=== PATIENT | male | born 1955 | race Caucasian/White ===

== ENCOUNTER 2019-07-24 19:18 | Inpatient (IN) | payer OTHER ==
[~2019-07-24] VITALS: Ht 190.5 cm; Wt 115.7 kg
[2019-07-24 19:32] VITALS: BP 163/89
[2019-07-24] MEDS ORDERED: METFORMIN HCL500 M3 PO (19:35)
[2019-07-24] MEDS ORDERED: LISINOPRIL5 MG PO (19:36)
[2019-07-24] MEDS ORDERED: LIPITOR 20 MG T20 M1 PO (19:36)
[2019-07-24] MEDS ORDERED: GLIPIZIDE 10 MG10 MG PO (19:36)
[2019-07-24] MEDS ORDERED: ASA81BEC PO (19:37)
[2019-07-24] MEDS ORDERED: CELEBREX 200 M200 M1 PO (19:37)
[2019-07-24] MEDS ORDERED: SINGULAIR 10 MG10 MG PO (19:37)
[2019-07-24] MEDS ORDERED: ZYRTEC10 M5 PO (19:37)
[2019-07-24 20:44] LABS: URINE BILIRUBIN NEGATIVE (Negative); URINE BLOOD 3+ (Negative); URINE CLARITY CLEAR; URINE COLOR YELLOW; URINE GLUCOSE-RANDOM NEGATIVE (Negative); URINE KETONES 1+ (Negative); URINE LEUKOCYTES-REFLEX NEGATIVE (Negative); URINE NITRITE-REFLEX NEGATIVE (Negative); URINE PROTEIN 1+ (Negative); URINE SPECIFIC GRAVITY >= 1.030 (1.005-1.030); URINE UROBILINOGEN 0.2 E.U./dl (0.2-1.0)
[2019-07-24 20:50] LABS: HYALINE CASTS 0-3 Few /LPF (None Seen); URINE RBC >20 Many /HPF (0-2)
[2019-07-24 20:51] LABS: MUCUS 0-3 Light strn/LPF (None Seen); SQUAMOUS 0-3 Few /LPF (0-3)
[2019-07-24 20:52] LABS: BACTERIA-REFLEX None Seen /HPF (None Seen); CRYSTALS None Seen /LPF (None Seen); URINE WBC-REFLEX 0-5 Rare /HPF (0-5)
[2019-07-24 20:58] LABS: ABSOLUTE BASOPHILS 0.1 thou/uL (0.0-0.2); ABSOLUTE LYMPHOCYTES 1.3 thou/uL (0.8-5.3); ABSOLUTE MONOCYTES 0.5 thou/uL (0.0-1.2); ABSOLUTE NEUTROPHILS 10.8 thou/uL (1.6-8.1); EOSINOPHILS 0.2 %; HEMOGLOBIN 14.7 gm/dL (14.0-18.0); LYMPHOCYTES 10.1 %; MCH 30.4 pg (26.0-34.0); MCHC 34.3 g/dL (28.0-37.0); MCV 88.6 fL (80.0-100.0); MPV 8.3 fl. (7.2-11.1); NUCLEATED RBCS 0 /100WBC; PLATELET COUNT* 340 thou/uL (150-400); POLYS 84.7 %; RBC 4.85 mil/uL (4.50-6.00); RDW-CV 13.9 % (10.5-14.5); WBC 12.8 thou/uL (4.0-11.0)
[2019-07-24 21:06] LABS: CALCIUM 9.4 mg/dL (8.5-10.1); CREATININE 1.7 mg/dL (0.6-1.3); POTASSIUM 4.8 mmol/L (3.5-5.1)
[2019-07-24 21:11] LABS: ALBUMIN 3.7 g/dL (3.4-5.0); TOTAL BILIRUBIN 0.5 mg/dL (<0.1-1.0); TOTAL PROTEIN 7.2 g/dL (6.4-8.2)
[2019-07-24 22:39] VITALS: BP 163/89
[2019-07-24 23:00] VITALS: BP 132/79
[2019-07-25 07:30] VITALS: BP 125/75
[2019-07-25 10:32] LABS: CREATININE 1.8 mg/dL (0.6-1.3)
[2019-07-25 11:28] VITALS: BP 125/75
--- NOTE | 2019-07-25 16:32 | EKG ---
[place] [address] ELECTROCARDIOGRAM REPORT Name: CHAPO MORRISON Room: [address] ADM IN M.R.#: [id number] Admission: 07/24/19 Attend Phys: Jose Us Discharge: Date of : 57 Report #: [id number] THIS REPORT FOR: //name// [facility] Test Date: 2019-07-25 Test Time: 12:02:27 Pat Name: CHAPO MORRISON Department: Room: [address] Gender: M Coper Hand: : 1955 Requested By: Geneva Linda Order Number: [id number] Brandie MD: Donovan Shaw Measurements Intervals [place] Rate: 56 P: 22 HI: 148 QRS: 32 QRSD: 107 T: 17 QT: 420 QTc: 406 Interpretive Statements Sinus rhythm Abnormal R-wave progression, early transition No previous ECG available for comparison Electronically Signed On 07-25-2019 16:31:58 CDT by Donovan Shaw [email or web address] <ELECTRONICALLY SIGNED> By: Donovan Shaw MD, [facility] 07/25/19 1631 1202 1202 Donovan Shaw MD, FACC /EPI
[2019-07-25 20:00] VITALS: BP 124/72
[2019-07-25 23:45] VITALS: BP 123/75
[2019-07-26 04:00] VITALS: BP 109/77
[2019-07-26 04:39] LABS: CALCIUM 8.5 mg/dL (8.5-10.1); CREATININE 1.4 mg/dL (0.6-1.3); POTASSIUM 4.3 mmol/L (3.5-5.1)
[2019-07-26 08:05] VITALS: BP 126/78
--- NOTE | 2019-07-26 11:07 | OP ---
[address] [address] OPERATIVE REPORT Name: CHAPO MORRISON Room: [address] IN .R.#: [id number] Admission: 07/24/19 Attend Phys: Jose Us Discharge: Date of : 57 Report #: [id number] THIS REPORT FOR: //name// CC: Jose Jackson DATE OF SERVICE: 07/25/2019 PREOPERATIVE DIAGNOSIS: Left nephrolithiasis. POSTOPERATIVE DIAGNOSIS: Left nephrolithiasis. PROCEDURES PERFORMED: 1. Cystoscopy. 2. Left retrograde pyelogram. 3. Left ureteroscopy with laser lithotripsy and stone basket extraction. 4. Left ureteral stent placement. SURGEON: Dr. Yang Clark. COMPLICATIONS: None. DRAINS: 6 x 26 left ureteral stent. SPECIMENS: Left ureteral stone. ESTIMATED BLOOD LOSS: 0 mL. INDICATIONS FOR THE PROCEDURE: The patient is a 63-year-old gentleman who presented to the ER with left-sided flank pain and was found to have a 7-mm stone at the left UVJ as well as LUIS ANGEL with a creatinine of 1.8. After thorough discussion, a decision was made to proceed with ureteroscopy. DESCRIPTION OF THE PROCEDURE: On 07/25/2019, after consent was obtained, the patient was taken to the operating room and placed in supine position. He was then placed under general anesthesia. He received preoperative IV Cipro for antibiotic coverage. He was then placed in dorsal lithotomy and his genitals were prepped and draped in normal sterile fashion. We began the procedure by inserting a 22.5-Gabonese rigid cystoscope transurethrally without any difficulty. Once in the bladder, identified the left ureteral orifice. There was a stone emanating from this and I passed a sensor wire beyond this up into the renal pelvis under fluoroscopic guidance. At this point, the cystoscope was withdrawn. I then inserted a semirigid ureteroscope. I was able to pass this up alongside the sensor wire just within the UO where the stone resided. A 365 micron laser fiber was utilized to break the stone into approximately 5 smaller fragments. A 1.9 basket was utilized to evacuate [place] [address] OPERATIVE REPORT Name: CHAPO MORRISON Room: [address] IN [facility].#: [id number] Admission: 07/24/19 Attend Phys: Jose Us Discharge: Date of : 57 Report #: [id number] distal ureter. I made one final pass the ureteroscope up to the level of the proximal ureter. There was no evidence of any further stone burden. At this point, I withdrew the ureteroscope. I then placed a 5-Gabonese open-ended stent over the sensor wire. Retrograde pyelogram demonstrated normal-caliber collecting system without any filling defects or extravasation. Sensor wire was then replaced. I then backloaded the cystoscope over the sensor wire. I selected a 6 x 26 stent which passed up the upper pole under fluoroscopic guidance, had a good coil in the urinary bladder under direct visual guidance. The patient's bladder was emptied and was awakened from anesthesia. <ELECTRONICALLY SIGNED> By: Yang Clark MD 07/26/19 1107 1301 1313[facility] Don Clark MD /nt
[2019-07-26 12:02] VITALS: BP 126/78
[2019-07-26] MEDS ORDERED: OXYCODONE HCL 55 MG PO (12:07)
[2019-07-26] MEDS ORDERED: IBUPROFEN200 MG PO (12:09)
[2019-07-26] MEDS ORDERED: FLOMAX0.4 MG PO (12:10)
[2019-08-03 11:11] LABS: STONE CA OXALATE MONOHYDRATE 95 % (()); STONE COLOR Brown (()); STONE WEIGHT 24.1 mg (())
== END 2019-07-26 12:40 | disposition home or self-care (01) | DRG 660 ==
LOC: M.ERS 19:18 → M.3W 21:18 → M.TBA-ER 21:18 → M.3W 23:00
PROVIDERS: Emergency Medicine; Internal Medicine; Urology; ADMIT Family Medicine
PROC: BT1F1ZZ Fluoroscopy of Left Kidney, Ureter and Bladder using Low Osmolar Contrast (ICD-10-PCS; principal; 2019-07-25)
PROC: 0TC78ZZ Extirpation of Matter from Left Ureter, Via Natural or Artificial Opening Endoscopic (ICD-10-PCS; principal; 2019-07-25)
PROC: 0T778DZ Dilation of Left Ureter with Intraluminal Device, Via Natural or Artificial Opening Endoscopic (ICD-10-PCS; principal; 2019-07-25)
DX: N13.2 Hydronephrosis with renal and ureteral calculous obstruction (principal); J98.11 Atelectasis; N17.9 Acute kidney failure, unspecified; I10 Essential (primary) hypertension; E78.00 Pure hypercholesterolemia, unspecified; M19.90 Unspecified osteoarthritis, unspecified site; E11.9 Type 2 diabetes mellitus without complications; Z79.82 Long term (current) use of aspirin; Z79.84 Long term (current) use of oral hypoglycemic drugs; Z83.3 Family history of diabetes mellitus; Z82.49 Family history of ischemic heart disease and other diseases of the circulatory system; Z82.0 Family history of epilepsy and other diseases of the nervous system

== ENCOUNTER 2019-11-23 09:25 | Inpatient (IN) | payer OTHER ==
[~2019-11-23] VITALS: Ht 190.5 cm; Wt 122.0 kg
[~2019-11-23 09:25] MED LIST: ASA81BEC PO; CELEBREX 200 M200 M1 PO; FLOMAX0.4 MG PO; GLIPIZIDE 10 MG10 MG PO; IBUPROFEN200 MG PO; LIPITOR 20 MG T20 M1 PO; LISINOPRIL5 MG PO; METFORMIN HCL500 M3 PO; OXYCODONE HCL 55 MG PO; SINGULAIR 10 MG10 MG PO; ZYRTEC10 M5 PO
[2019-11-23 09:39] VITALS: BP 151/103
[2019-11-23 09:47] LABS: URINE BILIRUBIN NEGATIVE (Negative); URINE BLOOD 2+ (Negative); URINE CLARITY CLEAR; URINE COLOR YELLOW; URINE GLUCOSE-RANDOM 2+ (Negative); URINE KETONES 1+ (Negative); URINE LEUKOCYTES-REFLEX NEGATIVE (Negative); URINE NITRITE-REFLEX NEGATIVE (Negative); URINE PROTEIN 2+ (Negative); URINE SPECIFIC GRAVITY >= 1.030 (1.005-1.030); URINE UROBILINOGEN 0.2 E.U./dl (0.2-1.0)
[2019-11-23 10:01] LABS: HEMATOCRIT 43.5 % (42.0-52.0); HEMOGLOBIN 14.9 gm/dL (14.0-18.0); MCH 30.1 pg (26.0-34.0); MCHC 34.2 g/dL (28.0-37.0); MCV 88.2 fL (80.0-100.0); MPV 7.9 fl. (7.2-11.1); NUCLEATED RBCS 0 /100WBC; PLATELET COUNT* 371 thou/uL (150-400); RBC 4.94 mil/uL (4.50-6.00); RDW-CV 13.4 % (10.5-14.5); WBC 10.8 thou/uL (4.0-11.0)
[2019-11-23 10:17] LABS: BACTERIA-REFLEX 1-9 Few /HPF (None Seen); CASTS None Seen /LPF (None Seen); CRYSTALS None Seen /LPF (None Seen); SQUAMOUS 4-10 Moderate /LPF (0-3); URINE RBC 3-10 Few /HPF (0-2); URINE WBC-REFLEX 0-5 Rare /HPF (0-5)
[2019-11-23 10:33] LABS: ALBUMIN 4.1 g/dL (3.4-5.0); CREATININE 1.9 mg/dL (0.6-1.3); POTASSIUM 4.7 mmol/L (3.5-5.1); TOTAL BILIRUBIN 0.4 mg/dL (<0.1-1.0); TOTAL PROTEIN 7.8 g/dL (6.4-8.2)
[2019-11-23 10:47] LABS: ABSOLUTE LYMPHOCYTES 1.2 thou/uL (0.8-5.3); ABSOLUTE NEUTROPHILS 9.6 thou/uL (1.6-8.1); PLATELET ESTIMATE ADEQUATE
--- NOTE | 2019-11-23 11:06 | NUR ---
PT IS SCHEDULED FOR SURGERY AT [address] WELSH, PER UROLOGY RN.
[2019-11-23 11:59] VITALS: BP 136/82
[2019-11-23 12:00] VITALS: BP 140/77
--- NOTE | 2019-11-23 14:26 | EKG ---
[place] [address] ELECTROCARDIOGRAM REPORT Name: CHAPO MORRISON Room: [address] IN .R.#: [id number] Admission: 11/23/19 Attend Phys: Jose fabian Sa Discharge: Date of : 57 Date of Service: 11/23/19 1335 Report #: [id number] THIS REPORT FOR: //name// [facility] Test Date: 2019-11-23 Test Time: 13:35:45 Pat Name: CHAPO MORRISON Department: Room: [address] Gender: M [employer] Chief: : 1955 Requested By: Aditya Mancia Order Number: [id number] Brandie MD: Donovan Shaw Measurements Intervals [place] Rate: 82 P: 35 SC: 155 QRS: 20 QRSD: 104 T: 19 QT: 380 QTc: 444 Interpretive Statements Sinus rhythm Compared to ECG 07/25/2019 12:02:27 No significant changes Electronically Signed On 11-23-2019 14:25:49 [employer] by Donovan Shaw [email or web address] <ELECTRONICALLY SIGNED> By: Donovan Shaw MD, [facility] 11/23/19 1425 1335 1335 Donovan Shaw MD, [facility] /EPI
[2019-11-23 15:58] VITALS: BP 131/78
--- NOTE | 2019-11-23 18:53 | NUR ---
1200: PATIENT ADMITTED TO RM 213 FROM ER. REPORT RECD. IV SITE INFULTRATED, NEW SITE INITIATED, IV FLUIDS INFUSING W/O DIFF. 1300: ESCORTED TO SURGERY PER BED WITH SPECIAL PROCEDURE TECHNOLOGIST PRESENT. IV SITE SLd. 1555: PATIENT RETURNS FROM SURGERY. CHANGE IN POC. IV FLUIDS RESUMED. IV CATH SITE NOTED WNL, +BLOOD RETURN. PATIENT DENIES NURSING NEEDS AT THIS TIME. POC NPO AFTER MN REVIEWED W/ PATIENT, PATIENT STATES VERBALLY OF UNDERSTANDING. URINE TO BE STRAINED, PATIENT VERBALIZED UNDERSTANDING. EOS: PATIENT RESTING IN BED AT THIS TIME. DENIES NURSING NEEDS. ATE SUPPER MEAL. IV FLUIDS INFUSING W/O DIFF. CALL LIGHT IN REACH. ~TJRN
[2019-11-23 21:20] VITALS: BP 142/92
[2019-11-24 04:08] LABS: HEMATOCRIT 39.2 % (42.0-52.0); HEMOGLOBIN 13.6 gm/dL (14.0-18.0); MCH 30.7 pg (26.0-34.0); MCHC 34.6 g/dL (28.0-37.0); MCV 88.6 fL (80.0-100.0); MPV 8.2 fl. (7.2-11.1); RBC 4.42 mil/uL (4.50-6.00); RDW-CV 13.3 % (10.5-14.5); WBC 10.6 thou/uL (4.0-11.0)
[2019-11-24 04:25] LABS: ALBUMIN 3.3 g/dL (3.4-5.0); CALCIUM 8.2 mg/dL (8.5-10.1); CREATININE 2.3 mg/dL (0.6-1.3); MAGNESIUM 1.6 mg/dL (1.8-2.4); POTASSIUM 4.2 mmol/L (3.5-5.1); TOTAL BILIRUBIN 0.5 mg/dL (<0.1-1.0); TOTAL PROTEIN 6.6 g/dL (6.4-8.2)
--- NOTE | 2019-11-24 04:42 | NUR ---
PT A&O X 4. VSS ON RA. FENTANYL GIVEN FOR PAIN. UP AD EDUARD. NPO SINCE MIDNIGHT FOR PROCEDURE TODAY. IVF RUNNING ORDERED. WILL CONTINUE TO MONITOR.
[2019-11-24 09:30] VITALS: BP 141/90
--- NOTE | 2019-11-24 19:00 | NUR ---
PATIENT PLEASANT AND COOPERATIVE THRU SHIFT, SEE DEC. 1410: PATIENT OFF UNIT, ESCORTED PER BED TO PREOP WITH SURG STAFF PRESENT. 165: PATIENT RETURNS TO . REPORT REC'D. SCD BLE ON AND FUNCT APPROP. PATIENT INSTRUCTED WILL CONTINUE TO STRAIN URINE. IV FLUIDS INFUSING W/O DIFF, SITE NOTED WNL. PATIENT ATE GREATER THAN 50% OF SUPPER MEAL. CURRENTLY RESTING IN BED, DENIES OTHER NURSING NEEDS AT THIS TIME. CAPNO ON, NO ACUTE DISTRESS NOTED. FAMILY MEMBERS PRESENT AT BEDSIDE. HRLY ROUNDS DONE WHILE ON UNIT. ~TJRN
[2019-11-24 21:11] VITALS: BP 125/69
[2019-11-25] VITALS: BP 145/76
[2019-11-25 04:00] VITALS: BP 131/77
--- NOTE | 2019-11-25 05:46 | NUR ---
STRAINED URINE ALL SHIFT WITH NO RESIDUE OF STONE PRESENT. PATIENT DID NOT REPORT ANY PAIN OR NAUSEA. HE IS ABLE TO AMBULATE WELL AND IS NOT SHOWING ANY SIGNS OF PAIN OR DISCOMFORT. ON 2L O2 AND FLUIDS ALL SHIFT. PLAN IS TO D/C WEDNESDAY IF RENAL FUNTION IMPROVED. WILL CONTINUE TO FOLLOW PLAN OF CARE.
[2019-11-25] MEDS ORDERED: OXYBUTYNIN 5 MG5 M2 PO (08:26)
[2019-11-25] MEDS ORDERED: PERCOCET 5-3251 EACH PO (08:26)
[2019-11-25] MEDS ORDERED: CIPRO500 M1 PO (08:26)
[2019-11-25 09:16] LABS: CALCIUM 8.3 mg/dL (8.5-10.1); CREATININE 1.8 mg/dL (0.6-1.3); POTASSIUM 4.2 mmol/L (3.5-5.1)
[2019-11-25 11:00] VITALS: BP 131/77
[2019-11-25 14:34] VITALS: BP 131/77
--- NOTE | 2019-11-25 15:50 | NUR ---
PATIENT DISCHARGED FROM UNIT AT 1535. ALERT AND ORIENTED X 4. VITAL SIGNS STABLE ON ROOM AIR. UP INDEPENDENTLY IN ROOM. IV DISCONTINUED. DENIES PAIN AND NAUSEA AT THIS TIME. DISCHARGE INSTRUCTIONS, MEDICATION INFORMATION, AND SCRIPTS GIVEN TO PATIENT. LEFT WITH ALL BELONGINGS. PATIENT LEFT WITH SPOUSE VIA CAR.
[2019-11-25 15:51] VITALS: BP 131/77
--- NOTE | 2019-11-28 15:57 | OP ---
[address] [address] OPERATIVE REPORT Name: CHAPO MORRISON Room: [address] M.R.#: [id number] Admission: 11/23/19 Attend Phys: Jose Us Discharge: 11/25/19 Date of : 57 Report #: [id number] THIS REPORT FOR: //name// cc: Anshul Aranda MD, Jason MD ~ THIS REPORT FOR: //name// CC: Yang Jackson DATE OF SERVICE: 11/24/2019 PREOPERATIVE DIAGNOSIS: Right ureteral stone. POSTOPERATIVE DIAGNOSIS: Right ureteral stone. PROCEDURE PERFORMED: 1. Cystoscopy. 2. Right retrograde pyelogram. 3. Right ureteroscopy. 4. Right ureteral stent placement. STAFF: Yang Clark MD. COMPLICATIONS: Inability to cannulate the right distal ureter with an access sheath. DRAINS: 6 x 26 right ureteral stent. SPECIMENS: None. ESTIMATED BLOOD LOSS: None. INDICATIONS FOR PROCEDURE: The patient is a 64-year-old gentleman with a history of nephrolithiasis who I had performed a right shockwave lithotripsy on approximately 2 weeks ago. Postoperatively, he developed right-sided flank pain and was found on CT imaging in the [place] ER to have an approximately 7 mm right proximal ureteral stone and hydronephrosis. After thorough discussion, the decision was made to proceed with ureteroscopy. DESCRIPTION OF PROCEDURE: On 11/24/2019, after consent was obtained, the patient was taken to the operating room and placed in supine position. He was then placed under general anesthesia. He received preoperative IV Cipro for antibiotic coverage. He was then placed in dorsal lithotomy and his genitals were prepped and draped [place] [address] OPERATIVE REPORT Name: CHAPO MORRISON Room: [address]#: [id number] Admission: 11/23/19 Attend Phys: Jose Us Discharge: 11/25/19 Date of : 57 Report #: [id number] We began the procedure by inserting the 22.5-Canadian rigid cystoscope transurethrally without any difficulty. Once in the bladder, I identified the right ureteral orifice. This was cannulated with a 5-Canadian open-ended stent. A retrograde pyelogram was performed, which demonstrated a normal caliber ureter with mild hydronephrosis. There is no evidence of any filling defects or extravasation. It appeared to be the stone present in the proximal right ureter. At this point, a sensor wire was passed up in the upper pole and I was through the cystoscope. I then selected an 11-13-46 cm access sheath and attempted to pass the inner 11-Canadian cannula over the wire, however, I met resistance at the UO. At this point, I performed a rigid ureteroscopy to ensure there is no stone burden at the distal ureter. I advanced this alongside the sensor wire into the UO and distal ureter. I was able to advance it approximately 4 cm, however, the ureter was quite tight. There was no evidence of any stone burden. I went through the ureteroscope. I then swapped out the sensor wire for a Super Stiff wire using a 5-Canadian open-ended stent. Again, I tried the 11-Canadian cannula over the Super Stiff wire, however, met buckling in the bladder due to resistance. At this point, I opted to simply stent the patient. I backloaded the cystoscope over the Super Stiff wire, a 6 x 26 stent was passed up the renal pelvis under fluoroscopic guidance. I had a good coil in the urinary bladder under direct visual guidance. The patient's bladder was emptied. He was awakened from anesthesia. <ELECTRONICALLY SIGNED> By: Yang Clark MD 11/28/19 1557 1543 1629Yang Clark MD /nt
== END 2019-11-25 15:35 | disposition home or self-care (01) | DRG 661 ==
LOC: M.ERS 09:25 → M.TBA-ER 10:51 → M.ORTHSURG 10:51
PROVIDERS: Family Medicine; Internal Medicine; ADMIT Family Medicine
PROC: BT1D1ZZ Fluoroscopy of Right Kidney, Ureter and Bladder using Low Osmolar Contrast (ICD-10-PCS; principal; 2019-11-24)
PROC: 0T768DZ Dilation of Right Ureter with Intraluminal Device, Via Natural or Artificial Opening Endoscopic (ICD-10-PCS; principal; 2019-11-24)
DX: N13.2 Hydronephrosis with renal and ureteral calculous obstruction (principal); N17.0 Acute kidney failure with tubular necrosis; E78.00 Pure hypercholesterolemia, unspecified; E78.5 Hyperlipidemia, unspecified; M19.90 Unspecified osteoarthritis, unspecified site; E11.22 Type 2 diabetes mellitus with diabetic chronic kidney disease; I12.9 Hypertensive chronic kidney disease with stage 1 through stage 4 chronic kidney disease, or unspecified chronic kidney disease; N18.3 Chronic kidney disease, stage 3 (moderate); Z98.52 Vasectomy status; Z82.49 Family history of ischemic heart disease and other diseases of the circulatory system; Z83.3 Family history of diabetes mellitus; Z81.8 Family history of other mental and behavioral disorders; Z87.442 Personal history of urinary calculi; Z79.82 Long term (current) use of aspirin; Z79.84 Long term (current) use of oral hypoglycemic drugs; Z79.899 Other long term (current) drug therapy